=== PATIENT | female | born 1950 | race Caucasian/White ===

== ENCOUNTER 2017-01-03 19:19 | Emergency (ER) | payer MEDICARE ==
--- NOTE | 2017-01-03 19:33 | ERNOTE ---
ER Female HPI Date of Service: 01/03/17 Stated Complaint: UTI Presenting Symptoms: dysuria Time Seen by Provider: 01/03/17 19:22 Source: patient Exam Limitations: no limitations Immunizations: IMMUNIZATION HX History of Influenza Vaccine No Hx Pneumococcal Vaccination No Allergies/Adverse Reactions: Allergies cephalexin monohydrate [From Keflex] Allergy (Verified 01/03/17 20:03) clarithromycin Allergy (Verified 01/03/17 20:03) codeine Allergy (Verified 01/03/17 20:03) hydrocodone Allergy (Verified 01/03/17 20:03) hydroxyzine Allergy (Verified 01/03/17 20:03) meropenem Allergy (Verified 01/03/17 20:03) Penicillins Allergy (Verified 01/03/17 20:03) pseudoephedrine HCl [From Actifed] Allergy (Verified 01/03/17 20:03) sulfamethoxazole [From Bactrim] Allergy (Verified 01/03/17 20:03) telavancin Allergy (Verified 01/03/17 20:03) trimethoprim [From Bactrim] Allergy (Verified 01/03/17 20:03) triprolidine HCl [From Actifed] Allergy (Verified 01/03/17 20:03) vancomycin Allergy (Verified 01/03/17 20:03) vancomycin HCl [From Vancocin] Allergy (Verified 01/03/17 20:03) Home Medications: HOME MEDICATIONS Aspirin [Anita Chewable] 81 mg PO DAILY 01/25/15 [Last Taken Unknown] Atorvastatin Calcium 80 mg PO DAILY 01/25/15 [Last Taken Unknown] Carvedilol [Coreg] 25 mg PO BID 01/25/15 [Last Taken Unknown] Escitalopram Oxalate [Lexapro] 10 mg PO DAILY 01/25/15 [Last Taken Unknown] Furosemide [Lasix] 40 mg PO DAILY 01/25/15 [Last Taken Unknown] HYDROcodone/CHLORPHEN P-STIREX [Tussionex Pennkinetic Suspension] 5 ml PO PRN PRN 01/25/15 [Last Taken 01/24/15] Lisinopril 5 mg PO HS 01/25/15 [Last Taken Unknown] Lisinopril [Zestril] 10 mg PO DAILY 01/25/15 [Last Taken Unknown] Rudy-3 Fatty Acids [Fish Oil] 1,000 mg PO BID 01/25/15 [Last Taken Unknown] Omeprazole [Prilosec] 20 mg PO DAILY 01/25/15 [Last Taken Unknown] Triamcinolone Acetonide [Nasacort] 1 spray NS DAILY 01/25/15 [Last Taken Unknown ] glipiZIDE [Glipizide] 20 mg PO BID 01/25/15 [Last Taken Unknown] guaiFENesin/DEXTROMETHORPHAN [Mucinex Dm ER 600-30 mg Tablet] 1 each PO BID [Last Taken Unknown] metFORMIN HCL [Glucophage] 1,000 mg PO BID 01/25/15 [Last Taken Unknown] predniSONE [Prednisone] 3 tab PO DAILY #15 tab 01/25/15 [Last Taken Unknown] Ciprofloxacin HCl [Cipro] 500 mg PO BID 6 Days #12 tablet 01/03/17 [Last Taken Unknown] - History of Present Illness Narrative: States started with dysuria earlier today. Date (Duration): 01/03/17 Time (Timing): 12:00 Timing: Present: getting worse Quality: Present: burning Onset Location: Present: urethral Radiation: Present: none Activities at Onset: Present: other - Urinating Prior Abdominal Problems: Present: none Sexual [place] History: Present: not active Modifying Factors - (Worsens): Present: urinating Associated Symptoms: Present: denies symptoms Review of Systems - Narrative Narrative: Patient states that symptoms began spontaneously. Denies any incontinence, dribbling, flank, or abdominal pain. - Review of Systems Constitutional: Present: no symptoms reported Respiratory: Present: no symptoms reported Cardiology: Present: no symptoms reported Gastrointestinal/Abdominal: Present: no symptoms reported, other - Denies any abdominal pain. Denies any flank pain or suprapubic pain Genitourinary: Present: dysuria, other - Denies any vaginal discharge or odorous urine. Musculoskeletal: Present: no symptoms reported Skin: Present: no symptoms reported Neurological: Present: no symptoms reported Endocrine: Present: no symptoms reported Hematologic/Lymphatic: Present: no symptoms reported - Patient's Past Medical History Patient History - Medical: Diabetes Type 2 Patient History - Cardiac/Respiratory: Hypertension, Myocardial Infarction, Other Patient History - Cancer: No Hx of Cancer Patient History - Surgical Procedures: Other Patient History - Other: None - Social History Abuse History: No History of abuse Psych History: No pertinent hx - Immunizations Hx Pneumococcal Vaccination: No History of Influenza Vaccine: No Physical Exam - Physical Exam General Appearance: Present: wd/wn, alert, no apparent distress Respiratory: Present: no respiratory distress, no accessory muscle use Gastrointestinal/Abdominal: Present: normal bowel sounds, nontender, nondistended, soft Neurological Exam: Present: alert, oriented, normal mood/affect, no motor/ sensory deficits Skin Exam: Present: normal color, warm/dry ED Progress - Results and Orders Patient's Lab Results:: I have reviewed the patient's lab results. - Vital Signs Patient's Vital Signs:: I have reviewed the patient's vital signs. - Progress/Reassessment Chief Complaint: Genitourinary Problem Progress:: Re-examined Progress Note-Subjective: 01/03/17 20:15 Burning only with urination. Departure Clinical Impression: UTI (urinary tract infection) - Departure Disposition: Home self-care Condition: Good Instructions: Urinary Tract Infection, Adult, [id number] Additional Instructions: Take your allergy medication 30 minutes before the antibiotic. Drink lots of fluid. May take 24 - 48 hrs to improve but you should not worsen. Follow up with family provider in 2-3 day. Prescriptions: Ciprofloxacin HCl [Cipro] 500 mg PO BID 6 Days #12 tablet
[2017-01-03 19:54] LABS: Urine Appearance Slightly Cloudy; Urine Bilirubin Negative (NEGATIVE); Urine Blood 25 /ul (NEGATIVE); Urine Color Yellow; Urine Ketone 5 mg/dL (NEGATIVE)
[2017-01-03 19:55] LABS: Urine Bacteria 1+; Urine Nitrite Positive (NEGATIVE); Urine Protein Negative (NEGATIVE); Urine Urobilinogen Normal (NORMAL)
[2017-01-03 19:56] LABS: Urine RBC 0-5 /hpf (0-5)
[2017-01-03] MEDS ORDERED: CIPROFLOXACIN HCL 250 MG TABLET PO ONE (20:10)
[2017-01-03] MEDS ORDERED: CIPROFLOXACIN HCL 250 MG TABLET ONE (20:15)
[2017-01-03 20:51] VITALS: BP 130/68
== END 2017-01-03 20:15 | disposition home or self-care (01) ==
LOC: ER 19:19
DX: N39.0 Urinary tract infection, site not specified (principal); I25.2 Old myocardial infarction